=== PATIENT | female | born 1965 | race Caucasian/White ===

== ENCOUNTER 2022-10-24 21:50 | Emergency (ER) | payer MEDICARE, OTHER ==
[~2022-10-24] VITALS: Ht 160 cm; Wt 59.0 kg
[~2022-10-24 21:50] MED LIST: AMITRIPTYLINE H25 MG PO; ASPIRIN CHEW81 MG PO; BUPROPION HCL100 MG PO; LOVASTATIN40 MG PO; NEXIUM40 M1 PO; TIZANIDINE HCL4 MG PO; TRAZODONE HCL50 MG PO; VALTREX500 MG PO
[2022-10-24 22:44] LABS: BASOPHILS # (AUTO) 0.1 (0.0-0.1); BASOPHILS % 0.8 % (0.0-1.0); EOSINOPHILS # (AUTO) 0.4 (0.0-0.4); EOSINOPHILS % 4.2 % (0.0-6.0); HEMATOCRIT 42.5 % (34.2-44.1); HEMOGLOBIN 14.8 g/dL (12.0-16.0); LYMPHOCYTES # (AUTO) 3.6 (1.0-3.2); LYMPHOCYTES % 40.2 % (18.0-39.1); MEAN CORPUSCULAR HEMOGLOBIN 33.9 pg (28-32); MEAN CORPUSCULAR HGB CONC 34.8 g/dL (31-35); MEAN CORPUSCULAR VOLUME 97.3 fL (81-99); MONOCYTES # (AUTO) 0.9 (0.2-0.8); MONOCYTES % 10.2 % (4.4-11.3); NEUTROPHILS % 44.3 % (38.7-80.0); PLATELET COUNT 213 x10e3/uL (140-360); RED BLOOD COUNT 4.37 x10e6/uL (3.6-5.1); RED CELL DISTRIBUTION WIDTH 12.8 % (11.7-14.4)
[2022-10-24 23:02] LABS: ANION GAP 14.8 mmol/L (8-16); CALCIUM 9.1 mg/dL (8.4-10.2); CREATININE, SERUM 0.76 mg/dL (0.57-1.11); POTASSIUM 3.8 mmol/L (3.5-5.1)
[2022-10-25] MEDS ORDERED: DEPAKOTE ER 500MG TAB(ONCE DAILY) PO STA (00:24)
[2022-10-25] MEDS ORDERED: DEPAKOTE DELAYED-RELEASE TAB 500 MG PO ONE (00:31)
== END 2022-10-25 00:50 | disposition home or self-care (01) ==
LOC: ER 21:58
DX: S00.83XA Contusion of other part of head, initial encounter (principal); R56.9 Unspecified convulsions; W01.0XXA Fall on same level from slipping, tripping and stumbling without subsequent striking against object, initial encounter; Y92.89 Other specified places as the place of occurrence of the external cause; F32.A Depression, unspecified; Z87.820 Personal history of traumatic brain injury
CPT/HCPCS: 36415; 70450; 72125; 80048; 80164; 85025; 99284